=== PATIENT | female | born 1965 | race Caucasian/White ===

== ENCOUNTER 2022-07-05 10:37 | Outpatient (CLI) | payer OTHER, SELFPAY ==
--- NOTE | ~2022-07-05 | MR_ITS ---
MRI of the left knee Clinical history: Injury Technique: Coronal proton density and proton density-weighted images, sagittal proton-density and T2 fat-sat images, and axial proton-density fat-saturated images were acquired. Findings: Anterior and posterior cruciate ligaments are intact. Medial collateral ligament and the la teral collateral ligament complex are intact. Popliteus tendon is intact. There is probable horizontal tear of the posterior horn and body of the medial meniscus. No lateral m eniscal tear identified. There is extensive moderate chondromalacia the medial compartment. There is moderate chondromalacia t owards the lateral joint line. There is mild to moderate chondromalacia patella. Femoral trochlear ca rtilage is well preserved. Small tricompartmental osteophytes are present. Extensor mechanism is intact. Moderate joint effusion is present. No Polanco's cyst. Impression: Horizontal tear of the posterior horn and body of the medial meniscus. Sncq-[id number] tricompartmental degenerative change, as detailed above. Moderate joint effusion. Reviewed, dictated and finalized at location . [facility] Impression: Horizontal tear of the posterior horn and body of the medial meniscus. [id number] tricompartmental degenerative change, as detailed above. Moderate joint effusion.
== END 2022-07-05 10:38 ==
LOC: GOSHIMG 10:38
PROVIDERS: Visit Provider Orthopaedic Surgery
DX: S83.242A Other tear of medial meniscus, current injury, left knee, initial encounter (principal); T14.90XA Injury, unspecified, initial encounter; M25.462 Effusion, left knee
CPT/HCPCS: 73721

== ENCOUNTER 2022-08-27 00:51 | Day surgery (SDC) | payer SELFPAY ==
[2022-08-25 08:36] VITALS: BMI 26.6
--- NOTE | 2022-08-25 08:43 | PC.NURSE ---
Report to the Outpatient Waiting Room, entrance under the green pavilion located off [facility], at time 0700 on date 08/27/22. Planned Procedure Time: 0900. Time changes happen often and if your time is changed the preop area will call you the afternoon before. - You and your visitor will be asked to self-screen and do not enter if you have any COVID symptoms. - A mask is optional within the hospital at this time. Patients may have clear liquids (water, carbonated beverages, clear teas, apple juice) until 3 hours prior to surgery with a maximum of 20 ounces. - No food from midnight until time of surgery Take the following medications with a SIP of water the morning of surgery: N/A DO NOT STOP ANY OF YOUR OTHER PRESCRIPTION MEDICATIONS PRIOR TO SURGERY EXCEPT THE FOLLOWING Medications to discontinue per physician: N/A Date to take last dose: N/A Please no make-up, nail maltese, hairspray, perfume, deodorant, or body powder the day of surgery. No jewelry (including any body piercings) or valuables the day of surgery, leave them at home. Please take a shower or bath the night before, or the morning of, surgery with an antibacterial soap. Wear comfortable, loose fitting clothing. - Jewelry must be removed prior to entering the operating room. Rings and piercings that are not removed may be cut off. - The hospital will not accept responsibility for valuables. - Please leave all valuables, including medications, at home the day of surgery. If you are going home after surgery, a licensed national flatbed truck driver must drive you home. - NO public transportation without another adult if you receive anesthesia. - We recommend that an adult stay with you for 24 hours following discharge. - We also recommend that you do not drive, make important decision, drink alcoholic beverages, or take any drugs that were not prescribed by your health care provider for at least 24 hours after your discharge time. Follow any additional instructions given to you from your surgeon. If you or anyone in your household have experienced Covid symptoms in the past week, please notify your surgeon or the nurse liaison at the phone number below for possible testing. Telephone instructions given to PT - JASBIR MELCHOR and asked if any additional questions and then verbalized understanding. Patient advised to call surgeon office or pre surgery nurse liaison [phone] if any additional questions.
--- NOTE | 2022-08-26 10:35 | WPDANESEPPF ---
Anes - Initial Pre Proc Eval Procedure: Operation Date: 08/27/22 09:30 Proposed Procedures p Left Knee Arthroscopy, Proceed As Indicated - Lars Melendez MD Date/Time: 08/26/22 10:35 Surgeon: Lars Melendez MD Pre Op Diagnosis: left knee medial meniscus tear Patient Data Age: 56 Gender: F Height: 1.75 m Weight: 81.65 kg Allergies Allergy/AdvReac Type Severity Reaction Status Date / Time amoxicillin Allergy Unknown Hives Verified 08/27/22 06:46 Penicillins Allergy Unknown HIVES Verified 08/27/22 06:46 morphine Allergy Swelling Verified 08/27/22 06:46 Home Medications Medication Instructions Recorded Confirmed Type chlorhexidine gluconate 4 % 1 applic topical ONCE #237 mL 08/20/22 08/25/22 Rx topical liquid (Hibiclens) Patient hx anesthesia problems: post op nausea/vomiting Family hx anesthesia problems: none Results Review: All pre-operative results and documents have been reviewed as part of the pre-operative evaluation. [facility] Past Medical History Medical History (Updated 08/26/22 @ 10:36 by Fredrick Mccormick DO) History of diabetes mellitus no longer on meds Left knee injury Recurrent medial meniscus tear (2022) PONV (postoperative nausea and vomiting) Surgical History Surgical History (Updated 08/26/22 @ 10:36 by Fredrick Mccormick DO) History of arthroscopy of left knee 2016 History of total right knee replacement 2020 - Dr. Ambrocio History of tubal ligation Hx of arthroscopy of right knee 2018 Family History Family History Other Family history of gastrointestinal disorder Family history of malignant neoplasm Hypertension Social History Social History Smoking packs per day: 0.5 Smoking cigarettes per day: 10.0 Years smoked: 35 Smoking pack-years: 17.50 Smoking status: Current every day smoker Tobacco type: cigarettes Alcohol intake: current Alcohol use details: RARE Substance use: never Substance use type: does not use Living arrangements: with family Spiritual care concerns: No Anes - Eval Final PreProcedure Day of Procedure 08/26/22 10:35 Patient weight: overweight Heart: regular rate and rhythm Lungs: clear to auscultation Airway: Mallampati scale class II Neurological: alert and oriented Last oral intake: >/= 8 hours ASA classification: II Emergent: no Anesthetic plan: proceed Anesthesia type and monitoring: general LMA and standard monitoring Results Review: All pre-operative results and documents have been reviewed as part of the pre-operative evaluation. Informed Consent: The patient's anesthetic plan and its attendant risks and benefits were discussed with the patient/family/POA. Questions were solicited and answers provided to the satisfaction of the patient/family/POA.
[2022-08-27] VITALS (8 sets, daily range): BP systolic 124–142; BP diastolic 62–96; PULSE 60–92; RESP 12–16; TEMP 36–36.3; O2SAT 96–98
[2022-08-27] MEDS: CELECOXIB 200 MG CAPSULE PO (06:50)
[2022-08-27] MEDS: ACETAMINOPHEN 500 MG TABLET 1000 MG PO (06:50)
[2022-08-27] MEDS: LACTATED RINGERS 1,000 ML 30 ML IV CONT (07:13)
[2022-08-27] MEDS: SCOPOLAMINE 1.5 MG PATCH TRANSDERM (07:23)
--- NOTE | 2022-08-27 07:29 | WPDHPUPDATE1 ---
History and Physical Update Update Date/Time: 08/27/22 07:29 History and Physical has been reviewed, including an updated exam of the patient. There are NO changes in the patient's condition. Risks, benefits, and alternatives have been discussed and questions answered. Patient agrees to proceed with procedure.
[2022-08-27] MEDS: ceFAZolin 2 GM/D5W 50 ML 2 GM/50 ML BAG IVPB (07:35)
[2022-08-27] MEDS: BUPivacaine HCL 0.5% PF 30 ML VIAL INFILTRATE (08:04)
--- NOTE | 2022-08-27 08:54 | W.PM.PROC2 ---
Procedure Note - Detailed Date of Procedure 08/27/22 Pre-op Diagnosis left knee medial meniscus tear Post-op Diagnosis Same Procedure Performed LEFT KNEE SCOPE Surgeon Lars Melendez MD Anesthesia General Description of Procedure PATIENT WAS TAKEN TO THE OR. LEFT LEG WAS PREPPED AND DRAPED STERILE. TROCARS WERE PLACED IN THE USUAL FASHION. CAMERA WAS INTRODUCED. THERE WAS CHONDROMALACIA TO THE PATELLA FEMORAL JOINT. THERE WAS A LOT OF SYNOVITIS IN ALL COMPARTMENTS. THE MEDIAL COMPARTMENT SHOWED CHONDROMALACIA TO THE MEDIAL FEMORAL CONDYLE. A SHAVER WAS USED TO PREFORM A CHONDROPLASTY. THERE WAS A COMPLEX MEDIAL MENISCUS TEAR. THE TEAR WAS RESECTED WITH A BITER AND A SHAVER DOWN TO A SMOOTH BASE. ABOUT 30% OF THE MENISCUS WAS REMOVED. THE ACL WAS INTACT. THE LATERAL MENISCUS WAS NOT TORN. THE LATERAL COMPARTMENT HAD MINIMAL CHONDROMALACIA. CHONDROPLASTY WAS PREFORMED. THERE WAS HYPERTROPHIC SYNOVIUM ON THE LATERAL JOINT LINE. THE PATELLO FEMORAL JOINT UNDERWENT CHONDROPLASTY. SYNOVECTOMY WAS PREFORMED IN THE PATELLO FEMORAL COMPARTMENT. THERE WAS GRADE 2 CHONDROMALACIA IN PART OF THE TROCHLEA AND PART OF THE PATELLA. SYNOVECTOMY WAS PREFORMED IN THE SUPERIOR MEDIAL COMPARTMENT. THE WOUNDS WERE APPROXIMATED WITH 4.0 NYLON. STERILE DRESSING WAS APPLIED. PATIENT WAS EXTUBATED. Estimated Blood Loss -5.0 Complications No immediate complications Condition Stable Disposition PACU
[2022-08-27] MEDS: fentaNYL CITRATE INJ (*CRX) 100 MCG/2 ML VIAL 25 MCG IV PUSH ×3 (08:56→10:01)
[2022-08-27] MEDS: oxyCODONE HCL (*CRX) 5 MG TAB IR PO (09:41)
== END 2022-08-27 10:35 | disposition home or self-care (01) ==
PROVIDERS: Visit Provider Orthopaedic Surgery
PROC: (CPT 29870; principal; 2022-08-27 08:45)
DX: S83.232A Complex tear of medial meniscus, current injury, left knee, initial encounter (principal); M22.42 Chondromalacia patellae, left knee; M65.862 Other synovitis and tenosynovitis, left lower leg; X50.0XXA Overexertion from strenuous movement or load, initial encounter; F17.210 Nicotine dependence, cigarettes, uncomplicated
CPT/HCPCS: 29881; A9270; J0690; J1100; J1170; J2250; J2405; J2704; J3010; J7120